=== PATIENT | male | born 1945 | race Caucasian/White ===

== ENCOUNTER 2016-09-12 14:53 | Inpatient (IN) | payer MEDICARE, MEDICAID ==
[~2016-09-12] VITALS: Ht 167.6 cm; Wt 79.8 kg
--- NOTE | 2016-09-12 15:01 | NUR ---
pt bibra to er bed 10. her for medical eval prior to psych admit. pt in on 5150 hold for dto. per report pt is easily agitated. threatening staff. pt denies si/hi. appears agitated but cooperative at this time. awaiting md skelton.
--- NOTE | 2016-09-12 15:15 | NUR ---
pt provided water for urine specimen.
--- NOTE | 2016-09-12 15:20 | NUR ---
mechanical shop laborer at bedside for blood draw.
[2016-09-12 15:28] LABS: BASOPHILS % (AUTO) 0.9 % (0.0-2.0); EOSINOPHILS # (AUTO) 0.1 /CMM (0.0-0.7); EOSINOPHILS % (AUTO) 1.4 % (0.0-6.0); HEMATOCRIT 35 % (39-51); LYMPHOCYTES # (AUTO) 0.6 /CMM (0.8-4.8); LYMPHOCYTES % (AUTO) 10.7 % (20.0-44.0); MEAN CORPUSCULAR HEMOGLOBIN 30 PG (26.0-33.0); MEAN CORPUSCULAR HGB CONC 34 g/dl (31.0-36.0); MEAN CORPUSCULAR VOLUME 86 fL (80-96); MONOCYTES # (AUTO) 0.5 /CMM (0.1-1.30); MONOCYTES % (AUTO) 9.8 % (2.0-12.0); NEUTROPHILS # (AUTO) 4.1 /CMM (1.8-8.9); NEUTROPHILS % (AUTO) 77.2 % (43.0-81.0); PLATELET COUNT (AUTO) 259 /CMM (150-450); RDW COEFFICIENT OF VARIATION 13.9 (11.5-15.0); RED BLOOD CELL COUNT(AUTO) 4.07 MIL/uL (4.5-6.0); WHITE BLOOD COUNT (AUTO) 5.3 K/uL (4.3-11.0)
[2016-09-12 15:36] LABS: CALCIUM, SERUM 9.1 mg/dL (8.5-10.1); CARBON DIOXIDE 26 mmol/L (21-32); CHLORIDE 98 mmol/L (98-107); CREATININE 1.9 mg/dL (0.6-1.3); GLUCOSE 166 mg/dL (74-106); POTASSIUM 4.4 mmol/L (3.5-5.1); SODIUM SERUM 133 mmol/L (136-145); UREA NITROGEN, BLOOD 16 mg/dL (7-18)
[2016-09-12 15:41] LABS: ACETAMINOPHEN 0 ug/ml (10-30); ALANINE AMINOTRANSFERASE 32 U/L (12-78); ALBUMIN 4.1 g/dL (3.4-5.0); ALCOHOL, BLOOD < 3 mg/dL (0-0); ALKALINE PHOSPHATASE 109 U/L (46-116); ASPARTATE AMINOTRANSFERASE 28 U/L (15-37); BILIRUBIN,DIRECT 0.1 mg/dL (0.0-0.2); BILIRUBIN,TOTAL 0.5 mg/dL (0.2-1.0); TOTAL PROTEIN, SERUM 7.5 g/dL (6.4-8.2)
--- NOTE | 2016-09-12 16:25 | NUR ---
report given to steve. pt awaiting transfer to floor.
[2016-09-12 16:26] LABS: APPEARANCE,URINE Clear (CLEAR); BILIRUBIN,URINE Negative (NEGATIVE); BLOOD, URINE Negative Ery/uL (NEGATIVE); COLOR,URINE Yellow (YELLOW); KETONES,URINE Negative (NEGATIVE); LEUKOCYTE ESTERASE ,URINE Negative (NEGATIVE); NITRITE, URINE Negative (NEGATIVE); PH,URINE 6.5 (5.0-8.0); PROTEIN,URINE Trace mg/dl (NEGATIVE); UGLUCOSE Negative (NEGATIVE); UROBILINOGEN,URINE 0.2 EU/dL (0.2)
[2016-09-12] MEDS ORDERED: MAGNESIUM HYDROXIDE 30 ML UDC PO PRN (17:30)
[2016-09-12] MEDS ORDERED: LORAZEPAM 0.5 MG TABLET PO PRN (17:30)
[2016-09-12] MEDS ORDERED: ACETAMINOPHEN 325 MG TABLET PO PRN (17:30)
[2016-09-12] MEDS ORDERED: MAG HYDROX/AL HYDROX/SIMETH 30 ML UDC PO PRN (17:30)
[2016-09-12] MEDS ORDERED: TEMAZEPAM 7.5 MG CAPSULE PO PRN (17:30)
[2016-09-12 17:48] LABS: BACTERIA,URINE None seen /HPF (None Seen); RBC,URINE 0-2 /HPF (0-2); WBC,URINE 0-2 /HPF (0-3)
[2016-09-12 17:49] LABS: SQUAMOUS EPITHELIAL CELL,UR Few /HPF (None Seen)
--- NOTE | 2016-09-12 18:02 | NUR ---
GPS RN: ADMITTED PATIENT FROM THE ER ON HOLD FOR DANGER TO OTHERS. PATIENT ARRIVED TO THE FLOOR IN A WHEELCHAIR AT 1700. UPON FACE TO FACE ASSESSMENT PATIENT IS AGITATED, LOUD, GUARDED, REFUSED TO SIGN ADMITTING PAPERS, REFUSED FULL BODY CHECK, STATING THAT HE "DOES NOT HAVE ANYTHING." PATIENT'S BELONGINGS CHECKED FOR CONTRABAND. NO SS OF PHYSICAL DISTRESS. PATIENT PROVIDED WITH CALM AND SAFE ENVIRONMENT AND ORIENTED TO THE UNIT. DR. CASTELLANOS NOTIFIED OF THIS ADMISSION AND ADMITTING ORDERS RECEIVED. YARITZA CLARK NP ALSO NOTIFIED. PATIENT HAS NO ACTIVE MEDICATIONS, NO MEDICAL HISTORY.
--- NOTE | 2016-09-12 18:16 | NUR ---
GPS RN: PATIENT IS LOUD, RESTLESS AND AGITATED WITH OUTBURSTS, OFFERED ATIVAN TO HELP HIM CALM DOWN. PATIENT REFUSED, STATING "I DON'T NEED ANYTHING!". CONTINUE TO CLOSELY MONITOR AND ENDORSE TO THE UPCOMING SHIFT ACCORDINGLY.
[2016-09-12 18:24] VITALS: BP 151/94
[2016-09-12 20:00] VITALS: BP 153/91
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
[2016-09-13 07:06] LABS: ALBUMIN 3.7 g/dL (3.4-5.0); BILIRUBIN,TOTAL 0.5 mg/dL (0.2-1.0); CALCIUM, SERUM 9.2 mg/dL (8.5-10.1); CREATININE 1.7 mg/dL (0.6-1.3); POTASSIUM 4.2 mmol/L (3.5-5.1); TOTAL PROTEIN, SERUM 7.2 g/dL (6.4-8.2)
[2016-09-13 08:00] VITALS: BP 153/69
[2016-09-13] MEDS: DIVALPROEX SODIUM 125 MG CAP.SPRINK PO SCH ×2 (12:00→21:00)
[2016-09-13] MEDS: FLUPHENAZINE HCL 1 MG TABLET PO SCH ×2 (12:00→17:00)
[2016-09-13] MEDS: BENZTROPINE MESYLATE (1 MG) 1 MG TABLET PO SCH ×2 (12:00→17:00)
--- NOTE | 2016-09-13 13:30 | NUR ---
WRAPPER SORTER-NOTES PATIENT REFUSED COGENTIN 0.5MG P.O. PROLIXIN 2.5MG P.O AND DEPAKOTE 250MG P.O. EXPLAIN RISK AND BENEFITS BUT PATIENT SCREAM AND YELLS AT THE BASTING PULLER. STATED" I DON'T TAKE ANY MEDICATIONS AT ALL". OFFERED X3 BUT PATIENT GETS ANGRY ,YELLING AND THREATENING TO RITA THE DOCTORS. DR. MCLEOD AWARE OF PATIENT REFUSAL AND BEHAVIOR.
[2016-09-13 16:00] VITALS: BP 112/64
[2016-09-13] MEDS ORDERED: DEXTROSE 50%-WATER 50 ML DISP.SYRIN IV PRN ×2 (16:00)
[2016-09-13] MEDS ORDERED: INSULIN REGULAR, HUMAN 100 UNIT/ML 3 ML VIAL SQ PRN (16:00)
[2016-09-13] MEDS: BLOOD SUGAR DIAGNOSTIC 1 EACH STRIP IN SCH ×2 (17:30→21:38)
[2016-09-13] MEDS ORDERED: BLOOD SUGAR DIAGNOSTIC 1 EACH STRIP IN SCH (17:30)
--- NOTE | 2016-09-13 17:30 | NUR ---
PURCHASING AND FISCAL CLERK-NOTES PATIENT STILL REFUSED COGENTIN 0.5MG P.O. PROLIXIN 2.5MG P.O AND ACCU -CHECK DESPITE ENCOURAGEMENT. STATED" I DON'T NEED ANY MEDICATIONS AT ALL,AND I'M NOT DIABETIC ". OFFERED X3
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
[2016-09-13 20:00] VITALS: BP 141/61
--- NOTE | 2016-09-13 20:00 | NUR ---
GPS RN NOTE, RECEIVED PATIENT AWAKE AND IN BED, NO S/S OR COMPLAINTS OF PAIN AT THIS TIME. PATIENT IS DISPLAYING NO S/S OF APPARENT DISTRESS AT THIS TIME. PATIENT BREATHING IS UNLABORED WITH EQUAL RISE AND FALL OF THE CHEST. PATIENT IS ALERT AND ORIENTED X 3 ON ROOM AIR WITH A SPO2 97%. PATIENT NON-COMPLIANT WITH MEDICATION, ANXIOUS, COOPERATIVE, CONFUSED AT TIMES, AND NEEDS REORIENTATION. PATIENT DENIES SUICIDE AND HOMICIDAL IDEATIONS AT THIS TIME. PATIENT ASSISTED WITH TURNING AND REPOSITIONING Q2HR AND PRN FOR COMFORT AND CIRCULATION. PATIENT HAS NO NEEDS AT THIS TIME. PATIENT EDUCATED ON THE USE OF THE CALL VENTURA. PATIENT BED SIDE RAILS UP X2 FOR SAFETY, BED IS LOCKED AND LOW WILL CONTINUE TO MONITOR AND MAINTAIN SAFETY.
[2016-09-13] MEDS: CARVEDILOL 3.125 MG TABLET PO SCH (21:00)
--- NOTE | 2016-09-13 21:38 | NUR ---
GPS RN NOTE, PATIENT REFUSED TO TAKE COREG 3.125 MG PO Q12HR STATING, " MY OUTSIDE DOCTOR SAID MY BLOOD PRESSURE IS FINE AND I DON'T NEED THAT MEDICATION ANYMORE ". PATIENT REFUSED TO TAKE DEPAKOTE SPRINKLE 250MG PO Q12HR STATING, " I FIRING THAT DR MCLEOD. I NOT NEED THAT FUCKING MEDICATION. I'M NOT CRAZY ". PATIENT REFUSED TO DO A ACCU CHECK STATING, " WHEN YOUR STRESSED YOUR BLOOD SUGAR GOES UP AND MY OUTSIDE DOCTOR TOLD ME I DON'T NEED MY BLOOD SUGAR CHECKED ANYMORE, NOW LEAVE ME ALONE ". OFFERED BOTH MEDICATIONS AND ACCU CHECK THREE TIMES BUT STILL PATIENT REFUSED. EDUCATED THE PATIENT ON THE RISKS AND BENEFITS OF TAKING AND REFUSING AFOREMENTIONED MEDICATIONS. WILL CONTINUE TO MONITOR THIS PATIENT.
[2016-09-14] MEDS: BLOOD SUGAR DIAGNOSTIC 1 EACH STRIP IN SCH ×4 (07:30→21:05)
[2016-09-14 08:00] VITALS: BP 114/57
[2016-09-14] MEDS: BENZTROPINE MESYLATE (1 MG) 1 MG TABLET PO SCH ×2 (08:04→16:08)
[2016-09-14] MEDS: CARVEDILOL 3.125 MG TABLET PO SCH ×2 (08:04→21:00)
[2016-09-14] MEDS: DIVALPROEX SODIUM 125 MG CAP.SPRINK PO SCH ×2 (08:05→21:00)
[2016-09-14] MEDS: FLUPHENAZINE HCL 1 MG TABLET PO SCH ×2 (08:05→16:08)
[2016-09-14 08:23] VITALS: BP 114/57
--- NOTE | 2016-09-14 11:32 | NUR ---
MS RN NOTES NOTIFIED PATIENT MD ORDERED URINE SAMPLE AND PATIENT GIVES ME 2 MIDDLE FINGERS AND SAYS TO F THE DOCTORS. EXPLAINED WHAT THE SAMPLE WAS FOR AND PATIENT WALKED AWAY STAYING HE WILL NOT GIVE A SAMPLE
[2016-09-14 16:00] VITALS: BP 107/71
--- NOTE | 2016-09-14 16:54 | NUR ---
GPS RN NOTES NOTIFIED LESTER EBEN PATIENT POSITIVE FOR MRSA NARES
--- NOTE | 2016-09-14 18:13 | NUR ---
GPS RN NOTE: LESTER TREADWELL NP NEW T.O ORDER BACTROBAN BID FOR 7 DAYS ORDER PLACED AND CARED OUT WILL CONTINUE MONITORING
[2016-09-14 19:58] VITALS: BP 91/61
[2016-09-14] MEDS: MUPIROCIN OINT 2% 22 GM TUBE TP SCH (20:07)
--- NOTE | 2016-09-14 21:00 | NUR ---
GPS RN NOTES IN ROOM,ISOLATION PRECAUTION FOR MRSA NARES.DUE BACTROBAN APPLIED TO BOTH NARES PROPHYLAXIS.
--- NOTE | 2016-09-14 21:00 | NUR ---
GPS RN NOTES COREG HELD FOR LOW BLOOD PRESSURE 91/61,PULSE 83
--- NOTE | 2016-09-14 21:00 | NUR ---
GPS RN NOTES REFUSED DEPAKOTE,CLAIMED HE DOESNT HAVE PROBLEM WITH MOOD.ALSO REFUSED BLOOD SUGAR CHECK.CLAIMED HES DIABETES ALREADY CURED.
--- NOTE | 2016-09-15 02:15 | NUR ---
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
[2016-09-15] MEDS: BLOOD SUGAR DIAGNOSTIC 1 EACH STRIP IN SCH ×4 (07:30→22:33)
[2016-09-15 07:35] LABS: FREE PSA 0.35 ng/mL (0.00-45); PROSTATE SPECIFIC ANTIGEN SCR 1.5 ng/mL (0.00-4.00)
[2016-09-15 08:00] VITALS: BP 127/65
[2016-09-15] MEDS: MUPIROCIN OINT 2% 22 GM TUBE TP SCH ×2 (08:25→21:55)
[2016-09-15] MEDS: BENZTROPINE MESYLATE (1 MG) 1 MG TABLET PO SCH ×2 (09:00→17:00)
[2016-09-15] MEDS: FLUPHENAZINE HCL 1 MG TABLET PO SCH (09:00)
[2016-09-15] MEDS: CARVEDILOL 3.125 MG TABLET PO SCH ×2 (09:00→21:00)
[2016-09-15] MEDS: DIVALPROEX SODIUM 125 MG CAP.SPRINK PO SCH ×2 (09:00→21:00)
--- NOTE | 2016-09-15 09:52 | NUR ---
LEAD PRESSER-NOTES PATIENT REFUSED ALL 0900AM MEDICATIONS INCLUDING ACCU -CHECK DESPITE ENCOURAGEMENT. STATED" I DON'T NEED ANY MEDICATIONS AT ALL". OFFERED X3
[2016-09-15 10:31] LABS: CREATININE, URINE 64.1 MG/DL (30.0-125.0); URINE TOTAL PROTEIN 6.8 mg/dL (0-11.9)
--- NOTE | 2016-09-15 12:34 | NUR ---
LAUNCHMAN-NOTES RECEIVED A CALL FROM PATIENT MOTHER JOHN ASKING IF SHE WILL COME AND VISIT THE PATIENT. FINE PATCHER DID ASK PATIENT IF IT'S OK FOR HIS MOTHER TO COME SEE HIM BUT PATIENT STATED" IT IS NOT NECESSARY FOR HER TO COME SEE ME,I'M FINE". RELAYED PATIENT STATEMENT TO HER MOTHER.
--- NOTE | 2016-09-15 15:56 | NUR ---
Initial Discharge Plan: Patient lives alone [address] [place] [address]. Patient would like to return home upon discharge. slag production worker attempted to contact patient's girlfriend Lillian Gibbs ([phone]). slag production worker left a message with her contact information and will attempt again later. slag production worker will help form a safe and proper discharge.
[2016-09-15 16:00] VITALS: BP 131/74
[2016-09-15] MEDS: FLUPHENAZINE HCL 5 MG TABLET PO SCH (17:00)
--- NOTE | 2016-09-15 17:25 | NUR ---
LAMP WIRER-NOTES PATIENT REFUSED ALL 1700 MEDICATIONS INCLUDING ACCU -CHECK DESPITE ENCOURAGEMENT. . OFFERED X3
[2016-09-15 19:42] VITALS: BP 123/61
--- NOTE | 2016-09-15 21:56 | NUR ---
GPS RN NOTE: PATIENT REFUSED DEPAKOTE AND COREG, BP = 119/80 P=84 R=20. EXPLAINED THE RISK AND BENEFITS, PATIENT STILL REFUSED, ATTEMPTED X 3, PATIENT STILL REFUSED AND AGITATEDLY STATED " I DONT HAVE HIGH BLOOD PRESSURE AND I'M NOT PSYCHOTIC. I FIRED MY PSYCHIATRIST". WILL CONTINUE TOP MONITOR [id number] FOR SAFETY
[2016-09-15] MEDS: INSULIN REGULAR, HUMAN 100 UNIT/ML 3 ML VIAL SQ PRN (22:34)
[2016-09-16] MEDS: BLOOD SUGAR DIAGNOSTIC 1 EACH STRIP IN SCH ×4 (07:30→21:26)
[2016-09-16 07:46] LABS: BASOPHILS % (AUTO) 0.9 % (0.0-2.0); EOSINOPHILS # (AUTO) 0.1 /CMM (0.0-0.7); EOSINOPHILS % (AUTO) 3.3 % (0.0-6.0); HEMATOCRIT 36 % (39-51); HEMOGLOBIN 11.9 g/dL (13.5-17.5); LYMPHOCYTES # (AUTO) 0.6 /CMM (0.8-4.8); LYMPHOCYTES % (AUTO) 16.6 % (20.0-44.0); MEAN CORPUSCULAR HEMOGLOBIN 29 PG (26.0-33.0); MEAN CORPUSCULAR HGB CONC 34 g/dl (31.0-36.0); MEAN CORPUSCULAR VOLUME 87 fL (80-96); MONOCYTES # (AUTO) 0.4 /CMM (0.1-1.30); MONOCYTES % (AUTO) 10.9 % (2.0-12.0); NEUTROPHILS # (AUTO) 2.6 /CMM (1.8-8.9); NEUTROPHILS % (AUTO) 68.3 % (43.0-81.0); PLATELET COUNT (AUTO) 202 /CMM (150-450); RDW COEFFICIENT OF VARIATION 15.1 (11.5-15.0); WHITE BLOOD COUNT (AUTO) 3.8 K/uL (4.3-11.0)
[2016-09-16 08:00] VITALS: BP 104/64
[2016-09-16 08:01] LABS: CALCIUM, SERUM 9.2 mg/dL (8.5-10.1); CREATININE 1.7 mg/dL (0.6-1.3); PHOSPHORUS 3.7 mg/dL (2.5-4.9); POTASSIUM 4.5 mmol/L (3.5-5.1)
[2016-09-16] MEDS: MUPIROCIN OINT 2% 22 GM TUBE TP SCH ×2 (08:13→20:24)
[2016-09-16] MEDS: FLUPHENAZINE HCL 5 MG TABLET PO SCH ×2 (09:00→17:00)
[2016-09-16] MEDS: CARVEDILOL 3.125 MG TABLET PO SCH ×2 (09:00→21:00)
[2016-09-16] MEDS: BENZTROPINE MESYLATE (1 MG) 1 MG TABLET PO SCH ×2 (09:00→17:00)
[2016-09-16] MEDS: DIVALPROEX SODIUM 125 MG CAP.SPRINK PO SCH ×2 (09:00→21:00)
--- NOTE | 2016-09-16 10:01 | NUR ---
COMMERCIAL COUNSEL-NOTES PATIENT REFUSED ALL 0900AM MEDICATIONS INCLUDING ACCU -CHECK DESPITE ENCOURAGEMENT. OFFERED X3
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
[2016-09-16 16:00] VITALS: BP 124/65
[2016-09-16 21:17] VITALS: BP 136/78
--- NOTE | 2016-09-16 21:26 | NUR ---
GPS RN NOTE, PATIENT REFUSED TO TAKE COREG 3.125 MG PO Q12HR STATING, " MY OUTSIDE DOCTOR SAID MY BLOOD PRESSURE IS FINE AND I DON'T NEED THAT MEDICATION ANYMORE ". PATIENT REFUSED TO TAKE DEPAKOTE SPRINKLE 250MG PO Q12HR STATING, " I NOT NEED THAT MEDICATION. I'M NOT CRAZY ". PATIENT REFUSED TO DO A ACCU CHECK STATING, " WHEN YOUR STRESSED YOUR BLOOD SUGAR GOES UP AND MY OUTSIDE DOCTOR TOLD ME I DON'T NEED MY BLOOD SUGAR CHECKED ANYMORE, NOW LEAVE ME ALONE ". OFFERED BOTH MEDICATIONS AND ACCU CHECK THREE TIMES BUT STILL PATIENT REFUSED. EDUCATED THE PATIENT ON THE RISKS AND BENEFITS OF TAKING AND REFUSING AFOREMENTIONED MEDICATIONS. WILL CONTINUE TO MONITOR THIS PATIENT.
--- NOTE | 2016-09-17 07:30 | NUR ---
RN INITIAL NOTE PATIENT RECEIVED IN DINING AREA, HAVING BREAKFAST. AWAKE, ALERT ABLE TO MAKE NEEDS KNOWN. NO S/S OR COMPLAINTS OF PAIN AT THIS TIME. PATIENT IS DISPLAYING NO S/S OF APPARENT DISTRESS AT THIS TIME. SATING WELL ON ROOM AIR. RESPIRATIONS ARE EVEN AND UNLABORED. NO S/S OF SOB OR RESPIRATORY DISTRESS. PATIENT IS AMBULATORY. SAFETY PRECAUTIONS IMPLEMENTED, BED IN LOCKED, LOW POSITION WITH TWO SIDE RAILS UP. CALL LIGHT WITHIN EASY REACH. WILL CONTINUE TO MONITOR.
[2016-09-17] MEDS: MUPIROCIN OINT 2% 22 GM TUBE TP SCH ×2 (08:00→20:42)
[2016-09-17 08:10] VITALS: BP 101/69
[2016-09-17] MEDS: BLOOD SUGAR DIAGNOSTIC 1 EACH STRIP IN SCH ×4 (08:30→21:39)
[2016-09-17] MEDS: FLUPHENAZINE HCL 5 MG TABLET PO SCH ×2 (09:25→17:16)
[2016-09-17] MEDS: DIVALPROEX SODIUM 125 MG CAP.SPRINK PO SCH ×2 (09:25→21:37)
[2016-09-17] MEDS: BENZTROPINE MESYLATE (1 MG) 1 MG TABLET PO SCH ×2 (09:26→17:16)
[2016-09-17] MEDS: CARVEDILOL 3.125 MG TABLET PO SCH ×2 (09:26→21:38)
[2016-09-17] MEDS: INSULIN REGULAR, HUMAN 100 UNIT/ML 3 ML VIAL SQ PRN (11:48)
[2016-09-17 16:00] VITALS: BP 144/67
--- NOTE | 2016-09-17 16:11 | NUR ---
binding bench worker called the [place] [employer] [address] [address] ([phone]) and spoke to Officer Jason who stated that he was unaware of what to do with the information and transferred me to the sheet rock sander and delinquency prevention social worker left the sheet rock sander a voicemail and will follow-up.
--- NOTE | 2016-09-17 16:57 | NUR ---
group social worker attempted to contact Lillian Gibbs ([phone]) who patient states is his girlfriend. However, she was unavailable group social worker left a message with her contact information and will attempt again later.
[2016-09-17 20:00] VITALS: BP 149/72
--- NOTE | 2016-09-18 06:41 | NUR ---
RN GPS NOTE PT .REMAINED IN STABLE CONDITION RESTING IN HER BED ,NO ACUTE DISTRESS NOTED ATTENDED ALL NEEDS AND ANTICIPATED , DENIES SI/ HI AT THIS TIME,WILL ENDORSE TO NEXT SHIFT FOR CONTINUITY OF CARE
[2016-09-18] MEDS: BLOOD SUGAR DIAGNOSTIC 1 EACH STRIP IN SCH ×4 (07:52→21:30)
[2016-09-18 08:00] VITALS: BP 124/66
[2016-09-18] MEDS: DIVALPROEX SODIUM 125 MG CAP.SPRINK PO SCH ×2 (08:49→21:18)
[2016-09-18] MEDS: CARVEDILOL 3.125 MG TABLET PO SCH ×2 (08:49→21:18)
[2016-09-18] MEDS: MUPIROCIN OINT 2% 22 GM TUBE TP SCH ×2 (08:49→20:36)
[2016-09-18] MEDS: FLUPHENAZINE HCL 5 MG TABLET PO SCH ×2 (08:50→16:42)
[2016-09-18] MEDS: BENZTROPINE MESYLATE (1 MG) 1 MG TABLET PO SCH ×2 (08:50→16:42)
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
--- NOTE | 2016-09-18 16:28 | NUR ---
pressroom worker attempted to contact Lillian Gibbs ([phone]) who patient states is his girlfriend. However, she was unavailable pressroom worker left a message with her contact information and will attempt again later.
[2016-09-18 16:31] VITALS: BP 144/78
--- NOTE | 2016-09-18 19:30 | NUR ---
GPS RN NOTE, RECEIVED PATIENT AWAKE AND IN BED, NO S/S OR COMPLAINTS OF PAIN AT THIS TIME. PATIENT IS DISPLAYING NO S/S OF APPARENT DISTRESS AT THIS TIME. PATIENT BREATHING IS UNLABORED WITH EQUAL RISE AND FALL OF THE CHEST. PATIENT IS ALERT AND ORIENTED X 3 ON ROOM AIR WITH A SPO2 97%. PATIENT SELECTIVE WITH MEDICATION, ANXIOUS, COOPERATIVE, CONFUSED AT TIMES, AND NEEDS REORIENTATION. PATIENT DENIES SUICIDE AND HOMICIDAL IDEATIONS AT THIS TIME. PATIENT ASSISTED WITH TURNING AND REPOSITIONING Q2HR AND PRN FOR COMFORT AND CIRCULATION. PATIENT HAS NO NEEDS AT THIS TIME. PATIENT EDUCATED ON THE USE OF THE CALL VENTURA. PATIENT BED SIDE RAILS UP X2 FOR SAFETY, BED IS LOCKED AND LOW WILL CONTINUE TO MONITOR AND MAINTAIN SAFETY.
[2016-09-18 20:00] VITALS: BP 113/67
--- NOTE | 2016-09-18 21:30 | NUR ---
GPS RN NOTE, PERFORMED ACCU CHECK ON PATIENT WITH A BLOOD SUGAR RESULT OF 89. GAVE NO INSULIN PER SLIDING SCALE. WILL CONTINUE TO MONITOR THIS PATIENT.
[2016-09-19] MEDS: BLOOD SUGAR DIAGNOSTIC 1 EACH STRIP IN SCH ×4 (07:35→21:16)
[2016-09-19 08:13] VITALS: BP 106/55
[2016-09-19] MEDS: MUPIROCIN OINT 2% 22 GM TUBE TP SCH ×2 (08:26→21:08)
[2016-09-19] MEDS: CARVEDILOL 3.125 MG TABLET PO SCH ×2 (09:00→20:28)
[2016-09-19] MEDS: BENZTROPINE MESYLATE (1 MG) 1 MG TABLET PO SCH ×2 (09:30→17:13)
[2016-09-19] MEDS: DIVALPROEX SODIUM 125 MG CAP.SPRINK PO SCH ×2 (09:30→21:12)
[2016-09-19] MEDS: FLUPHENAZINE HCL 5 MG TABLET PO SCH ×2 (09:30→17:13)
--- NOTE | 2016-09-19 10:30 | NUR ---
RN-CO: Paged Dr Cruz to inform him that patient has been taking his medications. stated let the reservation agent and advocate come at 3pm and I will see next.
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
--- NOTE | 2016-09-19 15:00 | NUR ---
RN-CO: DR CASTELLANOS CANCELED THE RIESE HEARING SINCE PATIENT IS TAKING MEDICATIONS. ARIEL PEGUERO MADE AWARE.
[2016-09-19 15:50] VITALS: BP 123/64
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
--- NOTE | 2016-09-19 16:23 | NUR ---
marshmallow machine worker attempted to contact patient's brother Keith ([phone]) to inform him that patient will be discharged on Thursday09/22/16. However, he was unavailable. marshmallow machine worker left a detailed message with her direct contact number. marshmallow machine worker will follow-up.
--- NOTE | 2016-09-19 16:25 | NUR ---
traffic worker attempted to contact Lillian Gibbs ([phone]) to inform her that patient will be discharged Thursday09/22/16. However, she was unavailable. traffic worker left a message with her direct phone number. traffic worker will attempt again later.
[2016-09-19 20:00] VITALS: BP 113/49
--- NOTE | 2016-09-19 21:41 | NUR ---
GPS/RN NOTE: ACCUCHECK 88 MG/DL, NO INSULIN DUE AT THIS TIME. HS SNACKS GIVEN.
[2016-09-20] MEDS: BLOOD SUGAR DIAGNOSTIC 1 EACH STRIP IN SCH ×4 (07:31→21:30)
[2016-09-20 08:00] VITALS: BP 119/59
[2016-09-20] MEDS: FLUPHENAZINE HCL 5 MG TABLET PO SCH ×2 (08:05→16:43)
[2016-09-20] MEDS: BENZTROPINE MESYLATE (1 MG) 1 MG TABLET PO SCH ×2 (08:05→16:43)
[2016-09-20] MEDS: DIVALPROEX SODIUM 125 MG CAP.SPRINK PO SCH ×2 (08:05→21:03)
[2016-09-20] MEDS: CARVEDILOL 3.125 MG TABLET PO SCH ×2 (08:06→21:03)
[2016-09-20] MEDS: MUPIROCIN OINT 2% 22 GM TUBE TP SCH ×2 (08:07→20:15)
--- NOTE | 2016-09-20 19:25 | NUR ---
GPS/BUILDING RENTAL SUPERINTENDENT; RECEIVED PT IN THE DAY ROOM SITTING ON THE CHAIR AWAKE, ALERT AND COHERENTLY RESPONSIVE. NO AGGRESSION NOTED AT THIS TIME.
[2016-09-20 20:00] VITALS: BP 127/70
--- NOTE | 2016-09-20 21:30 | NUR ---
GPS/MUSIC ENGRAVER; PT IN HIS ROOM . ACCU CHECKED BS 78 NO COVERAGE GIVEN. ORANGE JUICE GIVEN.
--- NOTE | 2016-09-21 06:31 | NUR ---
GPS/SURGERY SPECIALIST; SLEPT FAIRLY. DENIES ANY PAIN. PT CALM AND NO AGGRESSIONS DURING THIS SHIFT. BEHAVED, WILL ENDORSE TO THE DAY SHIFT NURSE.
[2016-09-21] MEDS: BLOOD SUGAR DIAGNOSTIC 1 EACH STRIP IN SCH ×4 (08:11→21:59)
[2016-09-21] MEDS: MUPIROCIN OINT 2% 22 GM TUBE TP SCH (08:12)
[2016-09-21] MEDS: INSULIN REGULAR, HUMAN 100 UNIT/ML 3 ML VIAL SQ PRN (08:13)
[2016-09-21 08:33] VITALS: BP 134/79
[2016-09-21 08:35] VITALS: BP 130/70
[2016-09-21] MEDS: FLUPHENAZINE HCL 5 MG TABLET PO SCH ×2 (09:01→16:15)
[2016-09-21] MEDS: DIVALPROEX SODIUM 125 MG CAP.SPRINK PO SCH ×2 (09:01→21:06)
[2016-09-21] MEDS: CARVEDILOL 3.125 MG TABLET PO SCH ×2 (09:02→21:06)
[2016-09-21] MEDS: BENZTROPINE MESYLATE (1 MG) 1 MG TABLET PO SCH ×2 (09:02→16:15)
--- NOTE | 2016-09-21 16:35 | NUR ---
PATIENT BS-141 MG/DL, BUT REFUSED COVERAGE PATIENT STATE " I DO NOT NEED COVERAGE BECAUSE EAT ICE CREAM", NO ACUTE DISTRESS, PT MED COMPLIANT, CONTINUED MONITORING.
[2016-09-21 20:07] VITALS: BP 140/77
--- NOTE | 2016-09-22 07:15 | NUR ---
[id number]: BLOOD SUGAR IS 91 MG/DL AND NO INSULIN REQUIRED AT THIS TIME.
[2016-09-22 08:00] VITALS: BP 127/76
[2016-09-22] MEDS: BLOOD SUGAR DIAGNOSTIC 1 EACH STRIP IN SCH ×2 (08:25→12:00)
[2016-09-22] MEDS: BENZTROPINE MESYLATE (1 MG) 1 MG TABLET PO SCH (08:25)
[2016-09-22] MEDS: DIVALPROEX SODIUM 125 MG CAP.SPRINK PO SCH (08:26)
[2016-09-22] MEDS: FLUPHENAZINE HCL 5 MG TABLET PO SCH (08:27)
[2016-09-22] MEDS: CARVEDILOL 3.125 MG TABLET PO SCH (08:27)
--- NOTE | 2016-09-22 08:37 | NUR ---
bull gang worker attempted to contact Lillian Gibbs ([phone]) to inform her that patient will be discharged today 09/22/16. However, she was unavailable. bull gang worker left a detailed message informing her of the discharge and left her direct phone number. bull gang worker will attempt again later.
[2016-09-22 09:00] VITALS: BP 136/68
--- NOTE | 2016-09-22 11:21 | NUR ---
addiction social worker attempted to contact patient's brother Keith ([phone]) to inform him that patient will be discharged on Thursday09/22/16. However, he was unavailable. Assigned SW has already tried to contact him and left several messages for him about the patient's discharge. addiction social worker contacted Lillian Gibbs ([phone])- inspector government property of where the patient resides to inform her that patient will be discharged today. Her library circulation assistant Bradford answered and notified MIGUEL that she will inform her of the information. Addendum: 09/22/16 at 1140 by MANJINDER RIVERA Brother Keith called back and was informed of the discharge. Agrees with the discharge plan and stated that he has been taking care of his cat at his home in [place]. Resident informed by his nurse
--- NOTE | 2016-09-22 12:23 | NUR ---
[id number]: PT REFUSED ACCU-CHECK AT THIS TIME. ENCOURAGE PT TO BE COMPLAINT WITH ACCU-CHECKS. PT STATED, "I'M LEAVING SOON SO I DON'T NEED IT."
--- NOTE | 2016-09-22 12:30 | NUR ---
[id number]: PT IS 71 YEARS OLD MALE DISCHARGE TO [facility] AT [id number] [facility] [address] IN STABLE CONDITION. COMPLAINT WITH MEDICATIONS, COOPERATIVE WITH TREATMENT PLANS. PT DENIES SI/HI AND INSTRUCTED TO GO TO THE CLOSEST ER IF DEVELOPING SI/HI. BEHAVIOR IMPROVED, PSYCHIATRIC TX PLANS MET, MEDICAL TX PLANS DEFERRED FOR CONTINUAL MONITORING. EDUCATED PT ABOUT AFTER CARE PLAN AND COPY PROVIDED. RETURNED PERSONAL BELONGINGS TO PT. MEDICATIONS RECONCILED WITH DR. GUTIERREZ AND DR. CASTELLANOS. PT SIGNED DISCHARGE PAPERWORK. SKIN ASSESSMENT DONE. PT LEFT VIA TAXI ACCOMPANIED BY STAFF.
--- NOTE | 2016-09-22 15:18 | NUR ---
Discharge Note: Patient was discharged to [facility] located at [address] [facility] [address] via taxi transportation. His brother Keith ([phone]) was informed of the discharge plan as well as the accounting manager Lillian Gibbs ([phone]). Patient denied suicidal/homicidal ideations at the time of discharge and agreed with the discharge plan. Facilitated information to IDT team who are in agreement with the discharge arrangement. The multidisciplinary exitcare form was done, printed, signed, and given to the patient. Addendum: 09/22/16 at 1537 by MANJINDER RIVERA Home health order was fax[facility] to [facility] ( )
== END 2016-09-22 12:30 | disposition home or self-care (01) | DRG 885 ==
LOC: ER 15:00 → GPS 15:59
PROVIDERS: ADMIT Psychiatry & Neurology Psychiatry; ATTEND Nurse Practitioner Acute Care
DX: F25.0 Schizoaffective disorder, bipolar type (principal); N18.3 Chronic kidney disease, stage 3 (moderate); E11.65 Type 2 diabetes mellitus with hyperglycemia; I12.9 Hypertensive chronic kidney disease with stage 1 through stage 4 chronic kidney disease, or unspecified chronic kidney disease; E11.22 Type 2 diabetes mellitus with diabetic chronic kidney disease; D64.9 Anemia, unspecified; F29 Unspecified psychosis not due to a substance or known physiological condition; Z22.322 Carrier or suspected carrier of Methicillin resistant Staphylococcus aureus; Z87.891 Personal history of nicotine dependence; Z83.3 Family history of diabetes mellitus; Z82.49 Family history of ischemic heart disease and other diseases of the circulatory system; Z91.14 Patient's other noncompliance with medication regimen
CPT/HCPCS: 36415; 80048-TC; 80053-TC; 80061-TC; 80076-TC; 80305; 81000-TC; 82306; 82570-TC; 82652; 82962-TC; 83735-TC; 83970; 84100-TC; 84153-TC; 84154-TC; 84155-TC; 84300-TC; 85025-TC; 87081-TC; A4606; G0480; J1815; Z7610